=== PATIENT | male | born 1955 | race Two or more races ===

== ENCOUNTER 2022-08-30 04:42 | Day surgery (SDC) | payer OTHER ==
[~2022-08-30] VITALS: Ht 165.1 cm; Wt 54.4 kg
[~2022-08-30 04:42] MED LIST: TAMS0.4C PO
== END 2022-08-30 19:50 | disposition home or self-care (01) ==
LOC: CIR.AMB 04:42
PROVIDERS: ATTEND Surgery
DX: K40.21 Bilateral inguinal hernia, without obstruction or gangrene, recurrent (principal); Z20.822 Contact with and (suspected) exposure to COVID-19